=== PATIENT | female | born 2005 | race Caucasian/White ===

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

== ENCOUNTER 2023-12-31 12:58 | Outpatient (CLI) | payer MEDICAID, SELFPAY ==
[2023-12-31 13:12] LABS: HCT 42.9 % (36.0-46.0); MCH 28.2 pg (27.0-33.0); MCHC 32.6 % (32.0-36.0); MCV 86 fL (80-95); MPV 8.8 fL (8.0-11.0); Platelet Count 413 10^3/uL (130-400); RBC 4.97 10^6/uL (3.93-5.22); RDW 11.9 % (11.7-14.6); RDW-SD 37.7 fL; WBC 8.39 10^3/uL (4.4-10.8)
[2023-12-31 13:24] LABS: Hemoglobin A1C 5.3 % (<5.7)
[2023-12-31 14:04] LABS: ALT 19 U/L (14-59); AST 15 U/L (15-37); Albumin 3.9 g/dL (3.4-5.0); Alkaline Phosphatase 82 U/L (46-116); Anion Gap 4.9 mmol/L (3-11); BUN 20 mg/dL (7-18); Bilirubin, Total 0.45 mg/dL (0.2-1.0); CO2 31.1 mmol/L (21.0-32.0); CREATININE 0.9 mg/dL (0.55-1.02); Calcium 9.2 mg/dL (8.5-10.1); Calculated LDL 141 mg/dL (<100); Chloride 103 mmol/L (98-107); Cholesterol 216 mg/dL (<200); Estimated GFR 93.86 (mL/min/1.73m2); Glucose 112 mg/dL (74-106); HDL Cholesterol 43 mg/dL (40-60); Potassium 3.8 mmol/L (3.5-5.1); Sodium 139 mmol/L (136-145); Total Protein 7.8 g/dL (6.4-8.2); Triglyceride 160 mg/dL (<150); Vitamin D 25 Total 16.3 ng/mL (30-100)
[2024-01-04 14:36] LABS: TB Interpretation Positive (Negative); TB1 Ag minus Nil 0.41 IU/ml; TB2 Ag minus Nil 0.38 IU/mL
== END 2023-12-31 12:59 | disposition home or self-care (01) ==
LOC: LBO 12:59
PROVIDERS: PCP Pediatrics; Visit Provider Pediatrics
DX: R53.83 Other fatigue; Z11.1 Encounter for screening for respiratory tuberculosis
CPT/HCPCS: 36415; 80053; 80061; 82306; 85027; 83036; 84443; 86480

== ENCOUNTER 2024-01-11 14:16 | Outpatient (CLI) | payer MEDICAID, SELFPAY ==
[2024-01-13 14:26] LABS: TB Interpretation Positive (Negative); TB2 Ag minus Nil 0.44 IU/mL
== END 2024-01-11 14:17 | disposition home or self-care (01) ==
LOC: LBO 14:16
PROVIDERS: PCP Pediatrics; Visit Provider Pediatrics
DX: R76.12 Nonspecific reaction to cell mediated immunity measurement of gamma interferon antigen response without active tuberculosis (principal)
CPT/HCPCS: 36415; 86480

== ENCOUNTER 2024-07-28 10:03 | Emergency (ER) | payer MEDICAID, SELFPAY ==
[2024-07-28 10:13] VITALS: BP 133/88; PULSE 103; RESP 20; TEMP 37.7; O2SAT 99
[2024-07-28 10:18] VITALS: BP 133/88; PULSE 103; RESP 20; TEMP 37.7; O2SAT 99
--- NOTE | 2024-07-28 10:27 | ED.GENADUL_ITS ---
Discharge Plan Disposition Patient Disposition: Home Condition: Stable Discharge Details Clinical Impression: Nausea vomiting and diarrhea, Acute dehydration Primary Care Provider: Wu Ojeda ED Provider: Nile Pang Home Meds and New Rx's Prescriptions: New ondansetron 4 mg tablet,disintegrating 4 mg PO Q6H PRN (Reason: nausea and vomiting) Qty: 30 0RF No Action fluoxetine 10 mg capsule 10 mg PO DAILY Qty: 30 3RF ondansetron HCl 4 mg tablet 4 mg PO Q8H PRN sumatriptan succinate 100 mg tablet 50 mg PO PRN Patient Comments: [place] Jimi Ferrer'omid [facility] [place] 2.5 mg tablet 2.5 mg PO PRN Patient Comments: Dr. Jimi Ferrer'omid [facility]charge Instructions Instructions: Diarrhea, Adult ED, Nausea and Vomiting, Adult ED Additional Instructions: Your lab work today indicates some mild dehydration. Additional Zofran has been sent to the pharmacy for you to take as needed. Please continue to increase fluid intake with things like water and Gatorade or Pedialyte. Your viral testing was all negative.. Return to the emergency department if you notice inability to tolerate anything by mouth, persistent fevers, decreased urine output. HPI General Date/Time Provider Initiated Documentation: 07/28/24 10:15 . Limitations to Documentation: no limitations . Information obtained by: patient . HPI Narrative: 18-year-old female without significant past medical history presents for evaluation of vomiting diarrhea and bodyaches. She reports the diarrhea started yesterday. She has been having multiple episodes of yellow watery output. She reports that the diarrhea has slowed down a little bit today. She reports several episodes of vomiting. She reports crampy, aching pain in her lower back her legs and arms. She states that she did not know that she had a fever. 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 Denies any sore throat, runny nose or cough. Related Data Home Medications ?Medication ?Instructions ?Recorded ?Confirmed fluoxetine 10 mg capsule 10 mg PO DAILY #30 caps 06/19/23 07/28/24 ondansetron HCl 4 mg tablet 4 mg PO Q8H PRN 07/08/23 07/28/24 frovatriptan 2.5 mg tablet 2.5 mg PO PRN 12/31/23 07/28/24 sumatriptan succinate 100 mg tablet 50 mg PO PRN 12/31/23 07/28/24 ondansetron 4 mg disintegrating 4 mg PO Q6H PRN nausea and 07/28/24 tablet vomiting #30 tabs Previous Rx's ?Medication ?Instructions ?Recorded fluoxetine 10 mg capsule 10 mg PO DAILY #30 caps 06/19/23 ondansetron 4 mg disintegrating 4 mg PO Q6H PRN nausea and 07/28/24 tablet vomiting #30 tabs Allergies Allergy/AdvReac Type Severity Reaction Status Date / Time prochlorperazine (From AdvReac Unknown Agitation Verified 07/28/24 10:17 Compazine) eggplant AdvReac Unknown Rash/Itchin Uncoded 07/28/24 10:17 g General Stated Complaint: Abd Prob SKYLER: 3 Exam Narrative Exam Narrative: Review of Systems: All systems reviewed & are unremarkable except as noted in HPI and below Well-developed, no acute distress + Febrile NCAT Moist mucous membranes mild tachycardia Unlabored respiratory effort. Clear bilaterally no hypoxia Nondistended abdomen , soft nontender Course Vital Signs Vital signs: Vital Signs Temperature 37.7 C H 07/28/24 10:13 Pulse 103 H 07/28/24 10:13 Respiratory Rate 20 07/28/24 10:13 Blood Pressure 133/88 07/28/24 10:13 Pulse Oximetry 99 07/28/24 10:13 Temperature 37.7 C H 07/28/24 10:18 Pulse 103 H 07/28/24 10:18 Respiratory Rate 20 07/28/24 10:18 Blood Pressure 133/88 07/28/24 10:18 Blood Pressure Position Sitting 07/28/24 10:18 Pulse Oximetry 99 07/28/24 10:18 Oxygen Delivery Method Room Air 07/28/24 10:18 Oxygen Flow Rate 0 07/28/24 10:18 Medical Decision Making Emergent evaluation of vomiting diarrhea and fever. The patient has been having symptoms for slightly over 24 hours. She does work in a senior care so would have several exposure risks. Initial differential includes viral illness, gastroenteritis, dehydration, electrolyte derangement. Muscle aches could be secondary to fever or dehydration. Doubt rhabdo. Will give antipyretic and fluid resuscitation. Will check lab work and reassess. Lab work reviewed, no leukocytosis or anemia. There is a mild decrease in potassium at 3.3 and a mild BARRERA signs of clinical dehydration with an elevated BUN and anion gap. The patient has been resuscitated with IV fluids. The remainder of her electrolytes are not elevated. Her CPK is not elevated to indicate rhabdomyolysis. Her viral testing was negative. She was tolerating oral liquids in the emergency department and feeling much better. At this time the patient is stable for discharge home with close return precautions. 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 PPD - x 2. Negative chest x-ray. latent TB vs false + testing Dysmenorrhea (Acute) Menorrhagia with regular cycle (Acute) Well adult on routine health check (Acute) Learning difficulty (Acute 05/15/14) math Chronic daily headache (Chronic 07/06/17) is [place] [facility] [place] Medical History Strain of finger of right hand Migraine Anxiety Family History Mother Insomnia Essential hypertension Addisons disease Hyperlipidemia Mental disorder DEPRESSION/ANXIETY Father Essential hypertension Hyperlipidemia Brother Insomnia Pediatric hearing loss Grandfather Heart disease MGF Grandmother Insomnia Diabetes MGM Heart disease MGM Mental disorder maternal grandmother with anxiety and depression Other Substance abuse Social History (Updated 07/08/23 @ 11:54 by Thais Duque) Smoking/Tobacco Use Status: Never Second Hand Exposure: No Smoking risk assessment performed?: Yes Alcohol Intake: never Drug use: Never Substance use type: does not use Household members: family Education Level: college Details: [employer] for [employer]; 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
[2024-07-28] MEDS: Normal Saline 1,000 ML 1000 ML IV (10:40)
[2024-07-28 10:45] LABS: Abs Immature Grans 0.04 10^3/uL (0.0-0.06); Absolute Basophil Count 0.02 10^3/uL (0.0-0.2); Absolute Eosinophil Count 0.01 10^3/uL (0.0-0.7); Absolute Lymphocyte Count 0.82 10^3/uL (1.2-3.4); Absolute Monocyte Count 0.43 10^3/uL (0.1-0.8); Basophils % 0.2 %; Eosinophils % 0.1 %; HCT 45.3 % (36.0-46.0); Immature Grans % 0.5 %; Lymphocytes % 9.3 %; MCH 28.8 pg (27.0-33.0); MCHC 33.1 % (32.0-36.0); MCV 87 fL (80-95); MPV 9.1 fL (8.0-11.0); Monocytes % 4.9 %; Platelet Count 310 10^3/uL (130-400); RBC 5.21 10^6/uL (3.93-5.22); RDW 12.1 % (11.7-14.6); RDW-SD 38.5 fL; WBC 8.82 10^3/uL (4.4-10.8)
[2024-07-28 10:58] LABS: Anion Gap 14.8 mmol/L (3-11); BUN 19 mg/dL (7-18); CO2 24.2 mmol/L (21.0-32.0); CREATININE 1.2 mg/dL (0.55-1.02); Calcium 9.7 mg/dL (8.5-10.1); Chloride 101 mmol/L (98-107); Creatine Kinase 187 U/L (26-192); Estimated GFR 66.46 (mL/min/1.73m2); Glucose 100 mg/dL (74-106); Magnesium 1.8 mg/dL (1.8-2.4); Potassium 3.3 mmol/L (3.5-5.1); Sodium 140 mmol/L (136-145)
[2024-07-28] MEDS: Ondansetron 4 MG/2 ML VIAL IVP (11:10)
[2024-07-28] MEDS: Ketorolac 15 MG/ML VIAL 10 MG IVP (11:11)
[2024-07-28] MEDS: ACETAMINOPHEN 1,000 MG/100 ML BAG 400 MG IVPB (11:11)
[2024-07-28] MEDS: Potassium Chloride Liquid 20 MEQ PKT 40 MEQ PO (11:38)
[2024-07-28 12:38] VITALS: BP 115/65; PULSE 98; RESP 16; O2SAT 98
== END 2024-07-28 12:40 | disposition home or self-care (01) ==
LOC: ER 12:45
PROVIDERS: Emergency Provider Emergency Medicine; PCP Pediatrics
DX: R11.2 Nausea with vomiting, unspecified (principal); R19.7 Diarrhea, unspecified; E86.0 Dehydration
CPT/HCPCS: 36415; 80048; 81025; 82550; 87426; 96361; 96365; 96375; 99284; 83735; 85025; J0131; J1885; J2405

== ENCOUNTER 2024-07-29 01:36 | Emergency (ER) | payer MEDICAID, SELFPAY ==
[2024-07-29] VITALS (11 sets, daily range): BP systolic 106–126; BP diastolic 64–82; PULSE 65–92; RESP 16–18; TEMP 36.7; O2SAT 96–99
--- NOTE | 2024-07-29 01:59 | ED.GENADUL_ITS ---
Discharge Plan Disposition Patient Disposition: Home Condition: Good Discharge Details Clinical Impression: Abdominal pain, Diarrhea Primary Care Provider: Wu Ojeda ED Provider: Marj Fragoso Home Meds and New Rx's Prescriptions: Continued ondansetron HCl 4 mg tablet 4 mg PO Q8H PRN sumatriptan succinate 100 mg tablet 50 mg PO PRN Patient Comments: [place] Jimi [place] [facility] [place].5 mg tablet 2.5 mg PO PRN Patient Comments: [place] Jimi [place] [facility] [place] fluoxetine 10 mg capsule 10 mg PO DAILY Qty: 30 3RF ondansetron 4 mg tablet,disintegrating 4 mg PO Q6H PRN (Reason: nausea and vomiting) Qty: 30 0RF Discharge Instructions Instructions: Abdominal Pain, Adult ED, Diarrhea, Adult ED, Nausea and Vomiting, Adult ED Additional Instructions: supply specialist your ondansetron from the pharmacy in the morning. Call your primary care doctor in the morning to schedule an appointment for within the next 72 hours to follow up on your visit here. Return to the emergency department for new or worsening symptoms including new/different/worse abdominal pain, inability to keep down fluids, fever, or if you have any other concerns. Referrals: Wu Ojeda MD [Primary Care Provider] - HPI General Mode of arrival: ambulatory . Date/Time Provider Initiated Documentation: 07/29/24 01:38 . Limitations to Documentation: no limitations . Information obtained by: patient and old records reviewed (ED visit 07/28) . HPI Narrative: 18yo F with hx migraines presenting for abdominal pain. Seen in this ED yesterday morning for N/V/D x 1 day; was discharged with zofran. Has been tolerating fluids at home with the zofran with no further vomiting. Diarrhea persists, small amount every 1-2 hours, nonbloody. Thinks she has had decreased UOP this evening. Feels lightheaded with standing as well as generalized weakness, gets tired easily with any activity. Presents tonight for epigastric abdominal pain which is new. Feels dull, crampy, central. Non radiating. No alleviating or aggravating factors. Has not tried anything at home for pain. Also reports a mild headache that feels typical of her usual migraines. Had leg cramps yesterday which have since resolved. No fevers, chills, rash, neck pain, chest pain, difficulty breathing, dysuria, hematuria, or other concerns. Related Data Home Medications ?Medication ?Instructions ?Recorded ?Confirmed ondansetron HCl 4 mg tablet 4 mg PO Q8H PRN 07/08/23 07/29/24 frovatriptan 2.5 mg tablet 2.5 mg PO PRN 12/31/23 07/29/24 sumatriptan succinate 100 mg tablet 50 mg PO PRN 12/31/23 07/29/24 Allergies Allergy/AdvReac Type Severity Reaction Status Date / Time prochlorperazine (From AdvReac Unknown Agitation Verified 07/29/24 01:47 Compazine) eggplant AdvReac Unknown Rash/Itchin Uncoded 07/29/24 01:47 g General Stated Complaint: Recheck SKYLER: 3 Review of Systems Narrative: see HPI Exam Narrative Exam Narrative: General: Alert, well appearing, well nourished, in no acute distress. Head: Normocephalic, atraumatic Neck: Trachea midline, ?Neck supple. ENT: ?MMM.? Cardiac: ?RRR, no murmurs appreciated Resp: No respiratory distress. CTAB. Abd: ?Soft, non-distended, nontender : ?No suprapubic tenderness. No CVA tenderness. Extremities: ?No deformities.? No peripheral edema. Neurologic: GCS 15.? PERRL.? EOMI.? Fluent speech, no dysarthria. Motor- 5/5 strength symmetric bilateral upper and lower extremities Sensation- ?Intact to light touch and symmetric multiple dermatomes including upper and lower extremities Coordination- No dysmetria on finger to nose Gait/station: ?Normal stance.? No truncal ataxia. Steady gait with equal normal steps Course Vital Signs Vital signs: Vital Signs Temperature 36.7 C 07/29/24 01:40 Pulse 92 H 07/29/24 01:40 Respiratory Rate 18 07/29/24 01:40 Blood Pressure 126/78 07/29/24 01:40 Pulse Oximetry 96 07/29/24 01:40 Temperature 36.7 C 07/29/24 01:40 Temperature Source Oral 07/29/24 01:40 Pulse 92 H 07/29/24 01:40 Respiratory Rate 18 07/29/24 01:40 Blood Pressure 126/78 07/29/24 01:40 Blood Pressure Position Sitting 07/29/24 01:40 Pulse Oximetry 96 07/29/24 01:40 Oxygen Delivery Method Room Air 07/29/24 01:40 Oxygen Flow Rate 0 07/29/24 01:40 Pain Level 6 07/29/24 01:40 Medical Decision Making 18yo F with hx migraines presenting for abdominal pain. Seen in this ED yesterday morning for N/V/D x 1 day; was discharged with zofran. Tolerating fluids since then, diarrhea persists, however now has abdominal pain for which she presents to the ED. Dull, crampy, epgiastric. Has not tried anything at home for pain. On ROS also reports mild headache typical of her usual headaches which she attributes to dehydration and lack of sleep. Vital signs and physical exam reassuring on arrival; no abdominal tenderness. History and exam not suggestive of acute/surgical intraabdominal process (bowel obstruction, appendicitis, mesenteric ischemia), intracranial process (mass, bleed), meningitis, encephalitis, or other life-threatening etiology. Suspect ongoing gastroenteritis. Will get orthostatic vital signs, repeat labs, and treat pain with tylenol, toradol and give 1L IVFB and zofran here while awaiting results of workup. No indication for CT imaging at this time. EKG NSR, appropriate intervals, no ST segment or T wave abnormalities to suggest occlusive ND. Labs reviewed as below, CBC reassuring with no leukocytosis or anemia, CMP with no actionable abnormalities, lipase not suggestive of pancreatitis. Cr improved to 0.9 from 1.2 yesterday. Upreg negative. Orthostatic vital signs were not performed until after IVFB; normal at that time. On reassessment patient reports abdominal pain has mildly improved. She wonders if the discomfort is maybe because she is hungry. Vital signs remain reassuring with no abdominal tenderness on exam. Headache persists but patient is not bothered by it, reports that she anticipates it will go away after she is able to get some sleep. Would like to be discharged home which is reasonable. Discharged; discharge instructions and return precautions were reviewed with patient who verbalized understanding. All questions were answered and she is in full agreement with the plan. Lab Data Lab results reviewed: Yes I reviewed the patient's lab results. Labs: Laboratory Tests Range/Units 07/29/24 02:00 WBC (4.4-10.8) 10^3/uL 4.99 RBC (3.93-5.22) 10^6/uL 4.86 Hgb (11.2-15.7) g/dL 14.0 Hct (36.0-46.0) % 43.2 MCV (80-95) fL 89 MCH (27.0-33.0) pg 28.8 MCHC (32.0-36.0) % 32.4 RDW (11.7-14.6) % 12.1 Plt Count (130-400) 10^3/uL 260 MPV (8.0-11.0) fL 9.3 Immature Gran % % 0.2 Neutrophils % % 64.2 Lymphocytes % % 23.4 Monocytes % % 11.4 Eosinophils % % 0.6 Basophils % % 0.2 Nucleated RBC % (0.0-0.3) % 0.0 Absolute Neutrophils (1.2-6.7) 10^3/uL 3.20 Absolute Lymphocytes (1.2-3.4) 10^3/uL 1.17 L Absolute Monocytes (0.1-0.8) 10^3/uL 0.57 Absolute Eosinophils (0.0-0.7) 10^3/uL 0.03 Absolute Basophils (0.0-0.2) 10^3/uL 0.01 Sodium (136-145) mmol/L 141 Potassium (3.5-5.1) mmol/L 3.8 Chloride (98-107) mmol/L 107 Carbon Dioxide (21.0-32.0) mmol/L 24.6 Anion Gap (3-11) mmol/L 9.4 BUN (7-18) mg/dL 19 H Creatinine (0.55-1.02) mg/dL 0.9 Est GFR (CKD-EPI 2020) (mL/min/1.73m2) 93.86 Glucose (74-106) mg/dL 102 Calcium (8.5-10.1) mg/dL 8.7 Total Bilirubin (0.2-1.0) mg/dL 0.5 AST (15-37) U/L 18 ALT (14-59) U/L 16 Alkaline Phosphatase (46-116) U/L 64 Total Protein (6.4-8.2) g/dL 7.1 Albumin (3.4-5.0) g/dL 3.5 Lipase (<78) U/L 31 Quality:SDOH Health Related Social Needs: No Data to Display PFSH All Active Problems (Updated 07/29/24 @ 04:03 by Marj Fragoso MD) Diarrhea (Acute) Abdominal pain (Acute) Acute dehydration (Acute) Nausea vomiting and diarrhea (Acute) 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 PPD - x 2. Negative chest x-ray. latent TB vs false + testing Dysmenorrhea (Acute) Menorrhagia with regular cycle (Acute) Well adult on routine health check (Acute) Learning difficulty (Acute 05/15/14) math Chronic daily headache (Chronic 07/06/17) [place] [facility] [place] Medical History Strain of finger of right hand Migraine Anxiety Family History Mother Insomnia Essential hypertension Addisons disease Hyperlipidemia Mental disorder DEPRESSION/ANXIETY Father Essential hypertension Hyperlipidemia Brother Insomnia Pediatric hearing loss Grandfather Heart disease MGF Grandmother Insomnia Diabetes MGM Heart disease MGM Mental disorder maternal grandmother with anxiety and depression Other Substance abuse Social History (Updated 07/08/23 @ 11:54 by Thais Duque) Smoking/Tobacco Use Status: Never Second Hand Exposure: No Smoking risk assessment performed?: Yes Alcohol Intake: never Drug use: Occasionally Substance use type: marijuana Household members: family Housing: house Education Level: college Details: [employer] for [employer] science; 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
--- NOTE | 2024-07-29 02:00 | RT.EKG_ITS ---
APPROVED REPORT Exam: Resting ECG Reason for Exam: lightheaded Patient Location: E HR:73 bpm ECG Measurements Heart Rate 73 AXIS IL 144 P 26 QRSd 83 QRS 97 QT 388 T 41 QTc 427 Conclusion Sinus rhythm...normal P axis, V-rate 60- 99 NSR, appropriate intervals, no ST segment or T wave abnormalities to suggest occlusive AR.
[2024-07-29 02:07] LABS: Abs Immature Grans 0.01 10^3/uL (0.0-0.06); Absolute Basophil Count 0.01 10^3/uL (0.0-0.2); Absolute Eosinophil Count 0.03 10^3/uL (0.0-0.7); Absolute Lymphocyte Count 1.17 10^3/uL (1.2-3.4); Absolute Monocyte Count 0.57 10^3/uL (0.1-0.8); Basophils % 0.2 %; Eosinophils % 0.6 %; HCT 43.2 % (36.0-46.0); Immature Grans % 0.2 %; Lymphocytes % 23.4 %; MCH 28.8 pg (27.0-33.0); MCHC 32.4 % (32.0-36.0); MCV 89 fL (80-95); MPV 9.3 fL (8.0-11.0); Monocytes % 11.4 %; Neutrophils % 64.2 %; Platelet Count 260 10^3/uL (130-400); RBC 4.86 10^6/uL (3.93-5.22); RDW 12.1 % (11.7-14.6); RDW-SD 39.5 fL; WBC 4.99 10^3/uL (4.4-10.8)
[2024-07-29] MEDS: Normal Saline 1,000 ML 1000 ML IV (02:10)
[2024-07-29] MEDS: Ketorolac 15 MG/ML VIAL IVP (02:11)
[2024-07-29] MEDS: Ondansetron 4 MG/2 ML VIAL IVP (02:11)
[2024-07-29] MEDS: ACETAMINOPHEN 1,000 MG/100 ML BTL 400 MG (02:22)
[2024-07-29 02:26] LABS: ALT 16 U/L (14-59); AST 18 U/L (15-37); Albumin 3.5 g/dL (3.4-5.0); Alkaline Phosphatase 64 U/L (46-116); Anion Gap 9.4 mmol/L (3-11); BUN 19 mg/dL (7-18); Bilirubin, Total 0.5 mg/dL (0.2-1.0); CO2 24.6 mmol/L (21.0-32.0); CREATININE 0.9 mg/dL (0.55-1.02); Calcium 8.7 mg/dL (8.5-10.1); Chloride 107 mmol/L (98-107); Estimated GFR 93.86 (mL/min/1.73m2); Glucose 102 mg/dL (74-106); Lipase 31 U/L (<78); Potassium 3.8 mmol/L (3.5-5.1); Sodium 141 mmol/L (136-145); Total Protein 7.1 g/dL (6.4-8.2)
== END 2024-07-29 04:16 | disposition home or self-care (01) ==
PROVIDERS: Emergency Provider Student in an Organized Health Care Education/Training Program; PCP Pediatrics
DX: R10.9 Unspecified abdominal pain (principal); R19.7 Diarrhea, unspecified; R42 Dizziness and giddiness; R53.1 Weakness
CPT/HCPCS: 99283; 99284; 36415; 80053; 83690; 93005; 96361; 96374; 96375; 85025; 93010; J0131; J1885; J2405

== ENCOUNTER 2025-02-27 15:06 | Outpatient (REF) | payer MEDICAID, SELFPAY ==
[2025-02-27 21:17] LABS: HCT 41.9 % (36.0-46.0); HGB 13.5 g/dL (11.2-15.7); MCH 28.4 pg (27.0-33.0); MCHC 32.2 % (32.0-36.0); MCV 88 fL (80-95); MPV 9.7 fL (8.0-11.0); Platelet Count 438 10^3/uL (130-400); RBC 4.76 10^6/uL (3.93-5.22); RDW 11.6 % (11.7-14.6); RDW-SD 37.4 fL; WBC 11.53 10^3/uL (4.4-10.8)
[2025-02-27 21:32] LABS: ALT 11 U/L (10-49); AST 18 U/L (<34); Albumin 4.6 g/dL (3.4-5.0); Alkaline Phosphatase 70 U/L (46-116); Anion Gap 5.7 mmol/L (3-11); BUN 18 mg/dL (9-23); Bilirubin, Total 0.30 mg/dL (0.2-1.2); CO2 31.3 mmol/L (20.0-31.0); Calcium 9.8 mg/dL (8.3-10.6); Chloride 103 mmol/L (98-107); Cholesterol 219 mg/dL (<200); Glucose 83 mg/dL (74-106); HDL Cholesterol 46 mg/dL (>40); Hemoglobin A1C 5.0 % (<5.7); Potassium 4.1 mmol/L (3.5-5.1); Sodium 140 mmol/L (136-145); Total Protein 7.6 g/dL (5.7-8.2)
[2025-02-27 21:34] LABS: Vitamin D 25 Total 23 ng/mL (30-100)
[2025-02-27 21:35] LABS: Ferritin 12 ng/mL (7-271); TSH (W/Ref FT4) 1.79 uIU/mL (0.55-4.78)
[2025-02-27 21:40] LABS: Iron 36 ug/dL (50-170); Total Iron Binding Capacity 394 ug/dL (250-425)
== END 2025-02-27 15:07 | disposition home or self-care (01) ==
LOC: NCHCN 15:06
DX: Z13.0 Encounter for screening for diseases of the blood and blood-forming organs and certain disorders involving the immune mechanism (principal); Z13.1 Encounter for screening for diabetes mellitus; N94.6 Dysmenorrhea, unspecified; Z13.29 Encounter for screening for other suspected endocrine disorder; Z13.220 Encounter for screening for lipoid disorders; Z13.21 Encounter for screening for nutritional disorder
CPT/HCPCS: 80053; 80061; 82306; 85027; 82728; 83036; 83540; 83550; 84443